=== PATIENT | male | born 1950 | race Caucasian/White ===

== ENCOUNTER 2024-05-09 09:56 | Emergency (ER) | payer MEDICARE, SELFPAY ==
[2024-05-09 10:02] VITALS: BP 179/100
--- NOTE | 2024-05-09 10:21 | ED.GENMED ---
History of Present Illness
General
Chief Complaint: Cold/Flu/URI Symptoms
Time Seen by Provider: 05/09/24 10:18
History of Present Illness
History of Present Illness:
HPI: Patient presents with URI symptoms going on for the past 5 days; started as sore throat; now w/ congestion; his PMD placed on doxycycline and he had 3 doses. Reports that at home COVID test was negative. He was concerned of high blood
pressure readings at home.
EXAM:
GENERAL: Well appearing in no distress, prominent frequent cough noted
HEENT: Moist oral mucosa, there is tenderness to palpation of the left zygoma/maxillary sinus
CARDIOVASCULAR: No murmurs, normal heart rate, regular rhythm, No chest wall tenderness
PULMONARY: No respiratory distress, diffuse wheeze
ABDOMEN: Soft with no peritoneal signs, no tenderness
NEUROLOGIC: Excellent strength all extremities, no coordination deficits
PSYCHIATRIC: Appropriate mental status, normal insight and judgement
EXTREMITIES: Nontender, no edema, moves all extremities equally
SKIN: No rash, no lesions
TIME OF INITIAL ENCOUNTER: 10:40 AM
NUMBER AND COMPLEXITY OF PROBLEMS ADDRESSED AT THE ENCOUNTER
� Chronic conditions affecting care: High blood pressure, has had DVT
� Acute Exacerbation and/or Progression of Chronic Illness: This is an acute problem
� Differential Diagnosis includes: Viral syndrome, pneumonia, reactive airway disease
AMOUNT AND/OR COMPLEXITY OF DATA TO BE REVIEWED AND ANALYZED
� I performed an independent evaluation of and my interpretation is:
EKG:
CT:
X-rays: Chest x-ray shows hyperaeration of the lungs but no sign of pneumonia
Laboratory Studies:
Other:
� Review of other/old records: I reviewed records, the patient was here in 2014 with back pain
� Clinical information was obtained by an independent historian: I spoke to the at bedside
� Prescriptions/Medications Considered but not given:
� Further testing considered but not performed:
RISK OF COMPLICATIONS AND/OR MORBIDITY OR MORTALITY OF PATIENT MANAGEMENT
� Social determinants of health affecting care:
� Discussion with other providers:
� Escalation of care including admission/observation vs risk of discharge considered: The patient says he smokes 1 to 2 cigars a day but 'does not inhale'. He has significant wheezing on exam. He was recently on steroids which
is give a one-time dose of steroids now. Is also given a DuoNeb and will check chest x-ray as he was concerned about the possibly of pneumonia. The patient reports improvement after albuterol nebulizer was given. He was also given a dose of
steroid. Will give a couple more days of steroids. Overall he feels improved.
Past History
Past History
ED Past Medical History: Other (Agree with documented PMHX)
ED Past Surgical History: Other (N/A)
Social History
Personal:
Living: with family
Phy Exam
Physical Exam
Physical Exam:
See HPI
Course
Orders/Labs/Results
Orders:
Orders
05/09/24 10:45
CR Chest - 2 Views Urgent
Comment:
Reason For Exam: severe cough
05/09/24 10:53
Ipratropium/Albuterol Sulfate [Duoneb] 3 ml INH R NOW STA
Prednisone [Deltasone] 50 mg PO NOW STA
Vital Signs
Initial and Last Documented VS:
Initial Vital Signs
Temp Pulse Resp BP Pulse Ox
98.5 F 82 16 179/100 98
05/09/24 10:02 05/09/24 10:02 05/09/24 10:02 05/09/24 10:02 05/09/24 10:02
Last Documented Vital Signs
Temp Pulse Resp BP Pulse Ox
98.5 F 80 18 159/102 95
05/09/24 10:02 05/09/24 11:52 05/09/24 11:52 05/09/24 11:52 05/09/24 11:52
*Critical Care Note
Total Time (30-74mins, 75-104mins- exclusive of procedures): Not Applicable
ED Attending Note
-
Portions of this chart may have been created with voice recognition software.� Occasional wrong word or��sound alike� substitutions may have occurred due to the inherent limitations of voice recognition software.
Discharge Plan
Departure
Patient Disposition: Home (Routine Discharge)
Date of Disposition: 05/09/24
Time of Disposition: 13:15
Patient with high blood pressure during this ER visit?: Yes
Discharge Problem:
Acute bronchitis
Instructions: Acute Bronchitis, Adult (DC), Viral Syndrome (DC), BLOOD PRESSURE
Prescriptions:
New
prednisone 50 mg tablet
50 mg PO DAILY Qty: 3 0RF
albuterol sulfate [Ventolin HFA] 90 mcg/actuation HFA aerosol inhaler
2 puff inhalation Q6H PRN (Reason: shortness of breath or wheezing) Qty: 8.5 0RF
No Action
ibuprofen 600 MG tablet
600 mg PO TIDPRN PRN (Reason: pain) Qty: 21 0RF
cyclobenzaprine 10 MG tablet
10 mg PO TIDPRN PRN (Reason: back spasms) Qty: 30 0RF
hydrocodone-acetaminophen 1 TABLET tablet
1 tab PO Q4HPRN PRN (Reason: pain) Qty: 10 0RF
methylprednisolone [Medrol (Jeremías)] 4 MG tablets,dose pack
4 tab PO . DIRECT Qty: 1 0RF
Referrals:
Osorio Liu MD [Active] - Follow up in 5-7 days
Eva Fajardo MD [Family Provider] -
Activity Restrictions/Additional Instructions:
Next dose of steroids tomorrow. I have also sent a prescription for albuterol. [address] [place] [address]. The chest x-ray does not show any signs of pneumonia but does show hyperaerated lungs. Given your history of cigar use,
COPD/emphysema is still a possibility. 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
Interventions
Interventions:
*Risk Screen - Suicide Last Done: 05/09/24 10:38
*General Assessment Last Done: 05/09/24 10:39
*Neglect/Abuse Screening Last Done: 05/09/24 10:38
ED- Fall Risk Assessment Last Done: 05/09/24 10:38
*ED COVID-19 Vaccine History Last Done: 05/09/24 10:39
ED- Pulmonary Assessment Last Done: 05/09/24 10:38
Discharge Date and Time
Print Language: YORUBA
[2024-05-09] MEDS: DELTASONE 50 MG PO (10:58)
[2024-05-09] MEDS: DUONEB 3 ML INH (10:58)
[2024-05-09 11:52] VITALS: BP 159/102
== END 2024-05-09 13:54 | disposition home or self-care (01) ==
LOC: EMR 09:56
PROVIDERS: EMERGENCY PHYSICIAN Emergency Medicine; FAMILY PHYSICIAN Family Medicine
DX: J20.9 Acute bronchitis, unspecified (principal); I10 Essential (primary) hypertension; F17.290 Nicotine dependence, other tobacco product, uncomplicated
CPT/HCPCS: 99283; 94640; 71046